=== PATIENT | male | born 1935 | race Caucasian/White ===

== ENCOUNTER → 2017-02-06 | Day surgery (SDC) | payer OTHER ==
[2017-01-30 14:49] VITALS: BMI 25.0
[~2017-02-06] VITALS: Ht 175.3 cm; Wt 77.3 kg
[~2017-02-06] MED LIST: ASPCH81X PO; ATOR-24 PO; B-CO1CAP17 PO; CALC667C4 PO; CHOL100010 PO; CYAN100020 PO; DORZ2SOL17 OPB; FERR1TAB68 PO; LATA0.5S OPB; LIDOCAINE HCL 2% 2 ML VIAL (20MG/ML) ONE; LISI-789 PO; MISCCAP80 PO; ONDANSETRON INJ 2 MG/ML 2 ML VIAL IV PRN; PROPOFOL IV EMULSION 10 MG/ML 20 ML VIAL IV ONE; TAMS0.4C38 PO; VANC5CAP PO
[2017-02-06 09:26] VITALS: Ht 175.3 cm; Wt 77.3 kg
--- NOTE | 2017-02-06 09:32 | Endo History and Physical ---
History & Physical Date of Service: Feb 06, 2017. Chief Complaint: History of severe esophagitis Referring Physician: History of Present Illness Patient with erosive esophagitis for EGD today (follow-up). No dysphagia. Past Medical History Male Genitourinary Prob., Reflux, High Cholesterol, Hypertension Past Surgical History Hx Cardiac Surgery: Yes (HEART CATH-NO STENTS) Hx Internal Defibrillator: No Hx Pacemaker: No Hx Abdominal Surgery: No Hx of Implantable Prosthesis: No Hx Post-Op Nausea and Vomiting: No Hx Cancer Surgery: Yes (PARTIAL BLADDER REMOVAL) Hx Thoracic Surgery: No Hx Orthopedic: Yes (LUMBAR FUSION) Hx Urinary Tract Surgery: No Family History Colon CA Social History Smoking Status: Former Smoker Hx Substance Use: No Hx Alcohol Use: No Allergies Coded Allergies: No Known Allergies (Unverified , 02/06/17) Current Medications Reported Home Medications Medications Dose Route/Sig Max Daily Dose Days Date Category Trusopt Oph (Dorzolamide Hcl) 2 % Esther 1 Drops OPB BID 01/30/17 Reported Xalatan 0.005% Oph Esther (Latanoprost) 0.005 % Esther 1 Drops OPB HS 01/30/17 Reported Probiotic (Probiotic Product) 1 Cap Cap 1 Cap PO QAM 01/30/17 Reported Vancomycin (Vancomycin HCl) 125 Mg Cap 1 Cap PO QAM 01/30/17 Reported Vitamin D (Cholecalciferol) 1,000 Unit Tab 1 Tab PO QAM 01/30/17 Reported Vitamin B12 (Cyanocobalamin) 1,000 Mcg Tab 1 Tab PO QAM 01/30/17 Reported Aspirin Chewable (Aspirin) 81 Mg Chew 81 Mg PO QAM 01/30/17 Reported Flomax (Tamsulosin Hcl) 0.4 Mg Cap 0.4 Mg PO QPM 01/30/17 Reported Zestril (Lisinopril) 2.5 Mg Tab 1 Tab PO QPM 01/30/17 Reported Lipitor (Atorvastatin Calcium) 40 Mg Tab 40 Mg PO QPM 01/30/17 Reported Nephrocaps (Vitamin B Complex/Vit C/Folic Acid) Cap 1 Cap PO QAM 01/30/17 Reported Phoslo 667 Mg (Calcium Acetate) 667 Mg Cap 1 Cap PO TID 01/30/17 Reported Auryxia (Ferric Citrate) 210 Mg Tab 2 Tab PO WM 01/30/17 Reported Vital Signs Weight (Kilograms): 77.27 Height (Feet): 5 Height (Inches): 9 Date Time Temp Pulse Resp B/P Pulse Ox O2 Delivery O2 Flow Rate FiO2 02/06/17 09:24 36.2 71 20 152/74 98 Room Air Physical Exam General Appearance: no apparent distress Respiratory/Chest: Auscultation: deminished air movement Cardiovascular: Heart Auscultation: II/ CATHERINE Abdomen: Inspection & Palpation: soft Assessment and Plan EGD for follow-up of severe erosive esophagitis. Risks discussed to include bleeding, infection, perforation, pain and infection. Plan EGD today
--- NOTE | 2017-02-06 10:25 | Discharge Instructions ---
Endoscopy Patient Instructions Date / Procedure(s) Performed Feb 06, 2017. EGD Allergy Information Coded Allergies: No Known Allergies (Unverified , 02/06/17) Discharge Date / Findings Feb 06, 2017. small hiatal hernia possible Barretts Esophagus Medication Instructions Reported Home Medications Medications Dose Route/Sig Max Daily Dose Days Date Category Trusopt Oph (Dorzolamide Hcl) 2 % Esther 1 Drops OPB BID 01/30/17 Reported Xalatan 0.005% Oph Esther (Latanoprost) 0.005 % Esther 1 Drops OPB HS 01/30/17 Reported Probiotic (Probiotic Product) 1 Cap Cap 1 Cap PO QAM 01/30/17 Reported Vancomycin (Vancomycin HCl) 125 Mg Cap 1 Cap PO QAM 01/30/17 Reported Vitamin D (Cholecalciferol) 1,000 Unit Tab 1 Tab PO QAM 01/30/17 Reported Vitamin B12 (Cyanocobalamin) 1,000 Mcg Tab 1 Tab PO QAM 01/30/17 Reported Aspirin Chewable (Aspirin) 81 Mg Chew 81 Mg PO QAM 01/30/17 Reported Flomax (Tamsulosin Hcl) 0.4 Mg Cap 0.4 Mg PO QPM 01/30/17 Reported Zestril (Lisinopril) 2.5 Mg Tab 1 Tab PO QPM 01/30/17 Reported Lipitor (Atorvastatin Calcium) 40 Mg Tab 40 Mg PO QPM 01/30/17 Reported Nephrocaps (Vitamin B Complex/Vit C/Folic Acid) Cap 1 Cap PO QAM 01/30/17 Reported Phoslo 667 Mg (Calcium Acetate) 667 Mg Cap 1 Cap PO TID 01/30/17 Reported Auryxia (Ferric Citrate) 210 Mg Tab 2 Tab PO WM 01/30/17 Reported Provider Instructions Activity Restrictions - No exercising or heavy lifting for 24 hours. - Do not drink alcohol the day of the procedure. - Do not drive a car or operate machinery until the day after the procedure. - Do not make any important decisions or sign important papers in 24 hours after the procedure. Following Day: - Return to full activity which may include returning to work/school. Diet Start your diet with liquids and light foods (jello, soup, juice, toast). Then eat your usual diet if not nauseated. Treatment For Common After Affects For mild abdominal pain, bloating, or excessive gas: - Rest - Eat lightly - Lie on right side Follow-Up Information Follow-up with Dr. Traore as previously scheduled Continue Omeprazole 20 mg per day if found to have Barretts will likely suggest a follow-up examination in 3 years. Anesthesia Information What You Should Know You have had a procedure that required some medicine to reduce anxiety and discomfort. This treatment is called moderate sedation. After receiving the treatment, you may be sleepy, but you will be able to breathe on your own. The effects of the treatment may last for several hours. Follow these instructions along with Activity/Diet recommendations noted above: * Do NOT do anything where dizziness or clumsiness would be dangerous. * Rest quietly at home today, then you can be up and about tomorrow. * Have a responsible person stay with you the rest of today. * You may have had an I.V. today. If so, you may take the dressing off later today. Recommendations Call your doctor if: * Trouble breathing * Continuous vomiting for more than 24 hours * Temperature above 101 degrees * Severe abdominal pain or bloating * Pain not relieved by pain medicine ordered * There is increased drainage or redness from any incision * A large amount of rectal bleeding greater than 2-3 tablespoons. (If you had a polyp/s removed or have hemorrhoids, a small amount of blood - from the rectum is to be expected.) * You have any unanswered questions or concerns. IN THE EVENT OF A SERIOUS EMERGENCY, GO TO THE NEAREST EMERGENCY ROOM Your discharge instructions were prepared by provider Chandni Traore. Patient Instructions Signature Page Barrett Doyle Patient (or Guardian) Signature/Date: I have read and understand the instructions given to me by my caregivers. Caregiver/RN/Doctor Signature/Date: The above-named patient and/or guardian has received patient instructions on this date. + Original Patient Signature Page (only) stays with chart. Please make copy for patient.
--- NOTE | 2017-02-06 10:29 | GI REPORT ---
Procedure Date: 02/06/2017 10:15 AM Procedure: Upper GI endoscopy Indications: Follow-up of esophagitis Medicines: Monitored Anesthesia Care Complications: No immediate complications. Estimated blood loss: Minimal. Estimated Blood Loss: Estimated blood loss was minimal. Procedure: Pre-Anesthesia Assessment: - Prior to the procedure, a History and Physical was performed, and patient medications, allergies and sensitivities were reviewed. The patient's tolerance of previous anesthesia was reviewed. - The risks and benefits of the procedure and the sedation options and risks were discussed with the patient. All questions were answered and informed consent was obtained. - Patient identification and proposed procedure were verified prior to the procedure by the physician, the nurse and the family and consumer sciences professor. The procedure was verified in the procedure room. - Pre-procedure physical examination revealed no contraindications to sedation. - ASA Grade Assessment: III - A patient with severe systemic disease. - After reviewing the risks and benefits, the patient was deemed in satisfactory condition to undergo the procedure. - The anesthesia plan was to use monitored anesthesia care (MAC). - Immediately prior to administration of medications, the patient was re-assessed for adequacy to receive sedatives. - The heart rate, respiratory rate, oxygen saturations, blood pressure, adequacy of pulmonary ventilation, and response to care were monitored throughout the procedure. - The physical status of the patient was re-assessed after the procedure. After obtaining informed consent, the endoscope was passed under direct vision. Throughout the procedure, the patient's blood pressure, pulse, and oxygen saturations were monitored continuously. The scope was introduced through the mouth, and advanced to the second part of duodenum. The upper GI endoscopy was accomplished without difficulty. The patient tolerated the procedure well. Findings: The upper third of the esophagus and middle third of the esophagus were normal. The esophagus and gastroesophageal junction were examined with white light. There were esophageal mucosal changes suspicious for He's esophagus. These changes involved the mucosa at the upper extent of the gastric folds (37 cm from the incisors) extending to the Z-line (36 cm from the incisors). Circumferential salmon-colored mucosa was present from 36 to 37 cm. The maximum longitudinal extent of these esophageal mucosal changes was 1 cm in length. Mucosa was biopsied with a cold forceps for histology. One specimen bottle was sent to pathology. Estimated blood loss was minimal. A small hiatus hernia was found. The proximal extent of the gastric folds (end of tubular esophagus) was 37 cm from the incisors. The hiatal narrowing was 39 cm from the incisors. The Z-line was 36 cm from the incisors. The entire examined stomach was normal. The examined duodenum was normal. Impression: - Normal upper third of esophagus and middle third of esophagus. - Esophageal mucosal changes suspicious for He's esophagus. Biopsied. - Small hiatus hernia. - Normal stomach. - Normal examined duodenum. Recommendation: - Discharge patient to home (ambulatory). - Use Prilosec (omeprazole) 20 mg PO daily indefinitely. - Await pathology results. - Repeat the upper endoscopy in 3 years for surveillance based on pathology results. - Return to GI office as previously scheduled. Chandni Traore D.O. Chandni Traore, 02/06/2017 10:28:59 AM This report has been signed electronically. Note Initiated On: 02/06/2017 10:15 AM I attest to the content of the Intraoperative Record and orders documented therein, exceptions below
[2017-02-06 10:55] VITALS: BP 139/63; PULSE 61; O2SAT 98
--- NOTE | 2017-02-06 13:21 | Anesthesiology Progress Note ---
Anesthesia Post Op Note Date & Time Feb 06, 2017 at 13:20 Vital Signs Pain Intensity: 0 Vital Signs Past 12 Hours Date Time Temp Pulse Resp B/P Pulse Ox O2 Delivery O2 Flow Rate FiO2 02/06/17 10:55 61 16 139/63 98 Room Air 02/06/17 10:40 67 16 128/72 97 Room Air 02/06/17 10:25 76 16 116/51 94 Room Air 02/06/17 09:24 36.2 71 20 152/74 98 Room Air Notes Mental Status: alert / awake / arousable, participated in evaluation Pt Amnestic to Procedure: Yes Nausea / Vomiting: adequately controlled Pain: adequately controlled Airway Patency, RR, SpO2: stable & adequate BP & HR: stable & adequate Hydration State: stable & adequate Anesthetic Complications: no major complications apparent
== END | disposition home or self-care (01) ==
LOC: C.GI 09:06
PROVIDERS: ATTEND Internal Medicine Gastroenterology
DX: K22.70 Barrett's esophagus without dysplasia (principal); K44.9 Diaphragmatic hernia without obstruction or gangrene; K21.0 Gastro-esophageal reflux disease with esophagitis; Z80.0 Family history of malignant neoplasm of digestive organs; E78.5 Hyperlipidemia, unspecified; I10 Essential (primary) hypertension; Z98.890 Other specified postprocedural states; Z87.891 Personal history of nicotine dependence; Z98.1 Arthrodesis status

== ENCOUNTER → 2017-12-16 | Day surgery (SDC) | payer OTHER ==
[2017-11-17 15:33] VITALS: Ht 172.7 cm; Wt 77.3 kg
[~2017-12-16] VITALS: Ht 172.7 cm; Wt 77.3 kg
[~2017-12-16] MED LIST changes: -ASPCH81X PO; -B-CO1CAP17 PO; +CARV6.252 PO; -LIDOCAINE HCL 2% 2 ML VIAL (20MG/ML) ONE; -LISI-789 PO; +LISI40TA PO; -ONDANSETRON INJ 2 MG/ML 2 ML VIAL IV PRN; -PROPOFOL IV EMULSION 10 MG/ML 20 ML VIAL IV ONE; -VANC5CAP PO
== END | disposition home or self-care (01) ==
LOC: EDSTATUS 11:00 → C.PAT 15:36
PROVIDERS: ATTEND Ophthalmology
DX: H26.9 Unspecified cataract (principal); Z53.09 Procedure and treatment not carried out because of other contraindication